=== PATIENT | male | born 1980 | race Caucasian/White ===

== ENCOUNTER 2020-01-15 08:01 | Day surgery (SDC) | payer OTHER ==
[2020-01-15] MEDS ORDERED: Nozin Nasal Sanitizer NASBOTH ONE (08:45)
[2020-01-15] MEDS ORDERED: ceFAZolin 2 GM in Premix Bag 1 BAG IV ONE (08:45)
[2020-01-15] MEDS ORDERED: Lactated Ringers 1,000 ML IV SCH (08:45)
[2020-01-15] MEDS ORDERED: Glycopyrrolate 0.2 MG/ML 5 ML MDV ONE (11:19)
[2020-01-15] MEDS ORDERED: Propofol 200 MG/20 ML SDV ONE (11:19)
[2020-01-15] MEDS ORDERED: Dexamethasone 4 MG/ML SDV ONE (11:19)
[2020-01-15] MEDS ORDERED: Neostigmine Methylsulfate 1 MG/ML 5 ML Syringe ONE (11:19)
[2020-01-15] MEDS ORDERED: fentaNYL 250 MCG/5 ML SDV ONE (11:19)
[2020-01-15] MEDS ORDERED: Ondansetron 4 MG/2 ML SDV ONE (11:19)
[2020-01-15] MEDS ORDERED: Rocuronium 50 MG/5 ML Vial ONE ×2 (11:19→15:48)
[2020-01-15] MEDS ORDERED: Bupivacaine 0.25%/EPINEPHrine 1:200,000 30 ML SDV ONE (11:23)
[2020-01-15] MEDS ORDERED: Lactated Ringers 1,000 ML ONE (14:55)
[2020-01-15] MEDS ORDERED: fentaNYL 100 MCG/2 ML SDV ONE (16:59)
[2020-01-15] MEDS ORDERED: Morphine 4 MG/ML Syringe ONE (19:20)
[2020-01-15] MEDS ORDERED: Morphine 4 MG/ML Syringe IVPUSH ONE (19:26)
[2020-01-15] MEDS ORDERED: Hypromellose 0.3% Ophth Soln 15 ML Bottle EYEBOTH PRN (20:20)
--- NOTE | 2020-01-24 16:47 | OR ---
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 POSTOPERATIVE DIAGNOSES: 1. 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 2. Acetabular labral tear. PROCEDURES: 1. Arthroscopy right hip with acetabular rim resection and repair of acetabular labrum. 2. Osteoplasty of femoral head and neck junction. ANESTHESIA: General. INDICATIONS: Cecilio is a 39-year-old gentleman with a history of bilateral hip pain, currently right worse than left. X-rays and examination are consistent with significant femoral acetabular impingement with a combined pincer and CAM deformity. Right hip shows cystic changes in the femoral head and neck junction consistent with impingement. He now presents for right hip arthroscopy for evaluation of the labrum and takedown of the labrum and rim resection and osteoplasty of the CAM deformity. Risks, benefits, potential complications of the procedure were discussed. DESCRIPTION OF PROCEDURE: After adequate anesthesia was obtained, the patient was placed on the fracture table. Light countertraction was placed on the left leg. A large padded perineal post was utilized. Slight traction was placed on the right hip which is in a slightly flexed position. Right hip was then prepped and draped in a sterile fashion. A C- arm fluoroscopy was brought in and a long spinal needle was advanced towards the hip joint. Traction was then placed on the hip, achieving approximately 1 cm of distraction. Needle was then advanced into the hip without difficulty. This was placed from a superior lateral position just above the trochanter. Guide pin was placed through the needle. Skin incision was made and the scope cannula was then advanced over the guide pin into the joint atraumatically. Scope was introduced. Femoral head and edge of the labrum were identified. Fraying was noted on the labrum both superior and laterally. Some mild delamination noted more anteriorly. Hip capsule was visualized anteriorly and an anterolateral portal was then established using the same technique over guidewire. Burt blade was then used to connect the anterolateral portal to the lateral portal performing a capsulotomy. Further evaluation of the joint revealed intact articular cartilage in the femoral head. The majority of the weightbearing surface of the acetabulum was intact with the exception of a small area directly anterior. Lateral labrum showed significant fraying. After capsulotomy was adequately established and visualized both from the superolateral and anterolateral portals, scope was placed in the superolateral portal and working through the anterolateral one, capsule was divided off the edge of the acetabulum superiorly above the labrum exposing the pincer deformity. The long Burt blade was then used to detach the labrum. A joseph was then used to perform a rim resection removing approximately 5 mm of rim. This was monitored with fluoroscopy. Once the crossover sign had been eliminated, the labrum was then repaired back to the edge of the acetabulum. 2 Mitek Gryphon anchors were placed into the acetabular rim. One limb of the suture anchors was passed around the labrum and then tied down standard arthroscopic technique with the knot away from the articular surface. Solid repair was accomplished. Traction was released and adequate seal of the femoral head and labrum was confirmed. Capsular incision was then extended distally along the neck. A joseph was then used to perform an osteoplasty contouring the femoral head and neck junction. This was accomplished both with the hip extended and internally rotated, removing more of the superior lateral aspect and with the hip flexed internally and externally rotated working around the femoral head and neck junction. Area of the cyst was identified and contoured. This continued with both the direct visualization and fluoroscopic confirmation until adequate resection was obtained. Scope was then withdrawn. Port sites were closed with 3-0 Monocryl and Steri-Strips were applied. Port sites and the hip joint were infiltrated with 0.25% Marcaine and sterile dressings were applied. The patient tolerated the procedure very well. There were no complications. Length of the procedure was fairly extensive due to bleeding from the capsular edges which required continued control using the Mitek ablation radiofrequency. He was taken from the operating room in a stable condition. Andrea Granados MD /[id number]
== END 2020-01-15 21:37 | disposition home or self-care (01) ==
LOC: JP.SDS 08:01
PROVIDERS: ATTEND Specialist
DX: S73.191A Other sprain of right hip, initial encounter (principal); M25.851 Other specified joint disorders, right hip; M21.851 Other specified acquired deformities of right thigh; Z88.5 Allergy status to narcotic agent; Z91.041 Radiographic dye allergy status; X58.XXXA Exposure to other specified factors, initial encounter
CPT/HCPCS: 36415; 76000; 80053; 85027; C1713; J0690; J1100; J2270; J2405; J2704; J2710; J3010; J3490; J7120

== ENCOUNTER 2022-01-10 08:27 | Day surgery (SDC) | payer OTHER ==
[~2022-01-10 08:27] MED LIST: Bupivacaine 0.5% 50 ML MDV ONE
[2022-01-10] MEDS ORDERED: Neostigmine Methylsulfate 1 MG/ML 5 ML Syringe ONE (08:30)
[2022-01-10] MEDS ORDERED: Dexamethasone 4 MG/ML SDV ONE (08:30)
[2022-01-10] MEDS ORDERED: fentaNYL 250 MCG/5 ML SDV ONE ×2 (08:30→14:50)
[2022-01-10] MEDS ORDERED: Succinylcholine 200 MG/10 ML MDV ONE (08:30)
[2022-01-10] MEDS ORDERED: Glycopyrrolate 0.2 MG/ML 5 ML MDV ONE (08:30)
[2022-01-10] MEDS ORDERED: Rocuronium 50 MG/5 ML Vial ONE ×2 (08:30→15:10)
[2022-01-10] MEDS ORDERED: Ondansetron 4 MG/2 ML SDV ONE (08:30)
[2022-01-10] MEDS ORDERED: Propofol 200 MG/20 ML SDV ONE (08:30)
[2022-01-10] MEDS ORDERED: Lactated Ringers 1,000 ML IV SCH (09:00)
[2022-01-10] MEDS ORDERED: Nozin Nasal Sanitizer NASBOTH ONE (09:00)
[2022-01-10] MEDS ORDERED: ceFAZolin 2 GM in Premix Bag 1 BAG IV ONE (09:30)
[2022-01-10] MEDS ORDERED: Albuterol/Ipratropium 3.0-0.5 MG/3 ML Neb Soln NEB ONE (09:30)
[2022-01-10] MEDS ORDERED: Lactated Ringers 1,000 ML ONE (14:35)
[2022-01-10] MEDS ORDERED: Ketorolac 30 MG/ML SDV ONE (16:44)
[2022-01-10] MEDS ORDERED: Acetaminophen/oxyCODONE 325-5 MG Tab PO PRN (17:56)
== END 2022-01-10 18:25 | disposition home or self-care (01) ==
LOC: JP.SDS 08:27
PROVIDERS: ATTEND Specialist
DX: M25.852 Other specified joint disorders, left hip (principal); S73.192A Other sprain of left hip, initial encounter; F41.9 Anxiety disorder, unspecified; J45.909 Unspecified asthma, uncomplicated; J44.9 Chronic obstructive pulmonary disease, unspecified; Z88.5 Allergy status to narcotic agent
CPT/HCPCS: 36415; 76000; 80053; 85025; 94640; A9270-GY; C1713; C1769; J0330; J0690; J1100; J1885; J2405; J2704; J2710; J3010; J3490; J7120; J7620

== ENCOUNTER 2022-11-26 08:49 | Emergency (ER) | payer OTHER | END 2022-11-26 09:46 | disposition home or self-care (01) | LOC: JP.ED 08:49 | DX: S63.601A Unspecified sprain of right thumb, initial encounter (principal); J44.9 Chronic obstructive pulmonary disease, unspecified; Z91.041 Radiographic dye allergy status; Z88.5 Allergy status to narcotic agent; Z79.899 Other long term (current) drug therapy; X50.1XXA Overexertion from prolonged static or awkward postures, initial encounter | CPT/HCPCS: 73630-26-RT; 73630-RT; 99281; 99283 ==